=== PATIENT | male | born 1950 | race Caucasian/White ===

== ENCOUNTER 2024-04-30 13:08 | Emergency (ER) | payer MEDICARE ==
[~2024-04-30] VITALS: Ht 182.9 cm; Wt 100.0 kg
[~2024-04-30 13:08] MED LIST: FIBERCON
[2024-04-30 13:20] VITALS: TEMP 98.8
[2024-04-30] MEDS ORDERED: NS 1,000 ML IV ONE (13:45)
[2024-04-30 14:00] LABS: BASO % 0.3 % (0.0-2.0); EOS % 0.1 % (0.0-4.0); GRAN # 5.4 K/mm3 (1.4-6.5); GRAN % 74.1 % (42.2-75.2); HEMOGLOBIN 16.6 g/dl (13.5-18.0); LYMPH # 1.1 K/mm3 (1.2-3.4); LYMPH % 14.5 % (20.0-51.0); MEAN CELL VOLUME 89 fl (80.0-100.0); MEAN CORPUSCULAR HEMOGLOBIN 33 pg (27-31); MEAN CORPUSCULAR HGB CONC 37 g/dl (33.0-37.0); MEAN PLATELET VOLUME 10.2 fl (7.4-10.4); MONO # 0.8 K/mm3 (0.1-0.6); MONO % 10.7 % (1.7-9.3); PLATELET COUNT 214 K/mm3 (130-400); RED BLOOD COUNT 5.05 M/mm3 (4.20-5.60); REDCELL DISTRIBUTION WIDTH-CV 12.4 % (11.5-14.5)
[2024-04-30 14:43] LABS: ALBUMIN 3.8 g/dL (3.4-4.8); BILIRUBIN,TOTAL 1.1 mg/dL (0.2-1.2); CALCIUM 9.7 mg/dL (8.4-10.2); CREATININE, serum 0.96 mg/dL (0.72-1.25); TOTAL PROTEIN 6.8 g/dl (6.2-8.1)
[2024-04-30 15:03] LABS: COLLECTION METHOD CLEAN CATCH
[2024-04-30 15:15] LABS: URINE APPEARANCE CLEAR (CLEAR/HAZY); URINE BLOOD TRACE (NEGATIVE); URINE COLOR YELLOW (YELLOW); URINE GLUCOSE NEGATIVE (NEGATIVE); URINE KETONE 2+ (NEGATIVE); URINE NITRATE NEGATIVE (NEGATIVE); URINE PROTEIN(semi-quant) TRACE (NEGATIVE)
[2024-04-30 15:30] VITALS: BP 138/103
[2024-04-30] MEDS ORDERED: ELIQUIS 5MG PO (15:56)
[2024-04-30 16:41] VITALS: PULSE 86
--- NOTE | 2024-04-30 16:42 | NUR ---
clerical and administrative workers called to assist Iliana social work faculty member with patient's discharge from the ED. Worker collaborated with provider, Priyanka, nurse, Adri, Tower Cleaner, Debbie and sheriffs officer for the following. Worker contacted [facility], that has worked with this patient for the past 3 years. Katia advised that patient was independent with his walker and does not have a history of falling. Katia stated that patient pleaded with the [facility] board last Sunday/April 25, 2024 to keep him in long-term even at least through the weekend. Patient was released from the long-term on 04/25/24 with 1,000.00 on his credit/debit card. Katia stated that she was informed that patient was evicted from the Motel due to aggressive behavior. Katia stated that he has alienated his family due to the reasons why he was jailed. Worker spoke with Ole Baldwin, [facility] office, who concurs with the above information and advises that if patient is not found to have a medical need for hospitalization, to discharge him to the community and if he lingers to call [facility] police and have him arrested for trespassing. Worker, Security office, Tower Cleaner, Priyanka and Iliana met with patient and worker advised of the above information. Iliana and this worker called the [facility] and confirmed that patient is not banned and would need an intake assessment to stay there. Patient refused this offer and states he will call someone to transport him to a hotel. Patient was give phone numbers to [employer] and [employer], per his request. Worker left message for Machine Programmer, Nayla, and notified ANA MARIA Swan and advised of the above information. Iliana presented release of information for the Community Care Team and patient agreed and signed the release to get assistance from this team.
--- NOTE | 2024-04-30 17:07 | NUR ---
transmission worker was consulted due to patient being homeless and needing resources. CANDIS met with patient's PA whom expressed at this time they did not have enough to admit. SW met with patient to discuss resources. Patient was recently released from group home and did not have a place to stay. Patient stated he was at hotel but could not go back there. Patient stated he has poor balance and is afraid of falling. SW explained there is a homeless halfway in [place]. Patient stated he was in group home and lost his home so he has no where to go and needs to go to assisted living because of his balance. SW asked if patient is able to afford to return or go to a hotel. Patient stated no. SW explained patient has Medicare and explained [place] would be thousands a month if he does not have Medicaid. Patient stated he would qualify for Medicaid but they did not help him apply in group home. Patient stated he would not be able to afford to private pay in a usp or AL. SW requested Marelis with financial counseling to assist patient with applying for Medicaid. SW explained this is not a quick process, patient will likely be pending Medicaid for months. CANDIS explained patient would likely be discharging from the ER as the doctor did not have an admitting diagnosis. Patient stated well "I have a brain tumor" that is causing me to fall often this needs to be looked at. SW explained she would relay this to the doctor but if he does not have a reason to be admitted he would need to discharge to the homeless halfway or a hotel. CANDIS asked about Lilly whom was listed as a contact. Patient stated that is his cousin and they have not had contact except maybe twice since he has been released from group home (on Sunday.) CANDIS provided [facility] Resources that included information for the Homeless halfway, warming and cooling shelters, PCP options and discussed the community care team. Patient was agreeable to signing up for the community care team and signed the release. CANDIS explained she would update the doctor on this information. CANDIS met with DAMEON Mathew, and updated her on the above information. CANDIS Gunderson, assisted and wrote a note on this, see Claudia Gunderson social service note. CANDIS contacted homeless halfway and explained everything. They were willing to screen patient and as long as he was not on the sex offender list and they could meet his needs they could likely take him there. CANDIS Gunderson notified patient of this information and patient decided to go to a motel instead. Patient was provided with the phone numbers for [facility] and [facility]. CANDIS was notified Medicaid Application was completed. CANDIS completed APS report to assist patient with getting resources in the community. INTAKE ID [id number]
== END 2024-04-30 16:40 | disposition home or self-care (01) ==
LOC: COL.ER 13:08
PROVIDERS: Physician Assistant
DX: R53.1 Weakness (principal); I48.91 Unspecified atrial fibrillation
CPT/HCPCS: J7030